=== PATIENT | male | born 1985 | race Caucasian/White ===

== ENCOUNTER 2018-08-29 11:54 | Emergency (ER) | payer OTHER ==
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
[2018-08-29 12:21] VITALS: BMI 23.7
[2018-08-29] MEDS ORDERED: ACETAMINOPHEN 325 MG TABLET (FP) PO ONE (12:30)
[2018-08-29] MEDS ORDERED: ACETAMINOPHEN 325 MG TABLET (FP) ONE (12:38)
[2018-08-29 12:42] LABS: BASO % 0.4 % (0-2.0); EOS % 0.7 % (0-4.5); HEMATOCRIT 43.3 % (35.4-49); HEMOGLOBIN 15.4 GM/dL (11.7-16.9); LYMPH % 7.8 % (8-40); MCH 30.3 pg (25.7-33.7); MCHC 35.6 g/dl (32.0-35.9); MEAN CELL VOLUME 85.1 fl (80-96); MEAN PLT VOLUME 8.9 fl (7.5-11.1); MONO % 4.2 % (3.8-10.2); NEUT % 86.9 % (42.8-82.8); PLATELET COUNT 214 K/MM3 (134-434); RBC 5.09 M/mm3 (4.00-5.60); RDW 12.4 % (11.9-15.9); WHITE BLOOD COUNT 10.3 K/mm3 (4.0-10.0)
[2018-08-29 13:10] LABS: ALBUMIN 4.4 g/dl (3.4-5.0); ALK PHOS 50 U/L (45-117); ANION GAP 6 MMOL/L (8-16); BILIRUBIN,TOTAL 0.6 mg/dL (0.2-1); BLOOD UREA NITROGEN 8 mg/dL (7-18); CHLORIDE 100 mmol/L (98-107); CO2 29 mmol/L (21-32); GLUCOSE,RANDOM 126 mg/dL (74-106); POTASSIUM 3.9 mmol/L (3.5-5.1); SGOT/AST 187 U/L (15-37); SGPT/ALT 72 U/L (13-61); SODIUM 135 mmol/L (136-145); TOT PROT 7.7 g/dl (6.4-8.2)
[2018-08-29] MEDS ORDERED: SODIUM CHLORIDE 1,000 ML IV STA (13:27)
--- NOTE | 2018-08-29 13:36 | EKG ---
Test Reason : Blood Pressure : / mmHG Vent. Rate : 078 BPM Atrial Rate : 078 BPM P-R Int : 162 ms QRS Dur : 098 ms QT Int : 376 ms P-R-T Axes : 075 043 060 degrees QTc Int : 428 ms NORMAL SINUS RHYTHM NORMAL ECG NO PREVIOUS ECGS AVAILABLE Confirmed by DIANA RANDLE MD ([id number]) on 08/29/2018 1:36:01 PM Referred By: Confirmed By:DIANA RANDLE MD
[2018-08-29 15:06] VITALS: TEMP 97.6
[2018-08-29 17:05] VITALS: BP 139/76; PULSE 84
== END 2018-08-29 17:05 | disposition home or self-care (01) ==
LOC: JER 11:54
PROC: 3E0337Z Introduction of Electrolytic and Water Balance Substance into Peripheral Vein, Percutaneous Approach (ICD-10-PCS; principal; 2018-08-29)
DX: R00.2 Palpitations (principal); M62.82 Rhabdomyolysis
CPT/HCPCS: 36415; 80053; 82550; 82553; 84443; 84484; 85025; 93005; 93010; 99283-25; J7030